=== PATIENT | male | born 1955 | race Caucasian/White ===

== ENCOUNTER 2024-01-21 05:30 | Day surgery (SDC) | payer MEDICARE, MEDICAID ==
[2024-01-14 11:31] LABS: BASOPHILS % (AUTO) 0.8 % (0-1); EOSINOPHILS # (AUTO) 0.2 X10'3 (0-0.9); EOSINOPHILS % (AUTO) 4.1 % (0-6); LYMPHOCYTES % (AUTO) 18.7 % (21-51); MEAN CORPUSCULAR HEMOGLOBIN 27.3 PG (27.0-31.0); MEAN CORPUSCULAR HGB CONC 32.3 g/dL (33.0-36.5); MEAN CORPUSCULAR VOLUME 84.3 FL (78-98); MEAN PLATELET VOLUME 7.2 FL (7.4-10.4); MONOCYTES # (AUTO) 0.4 X10'3 (0-0.9); MONOCYTES % (AUTO) 8.3 % (2-12); NEUTROPHILS # (AUTO) 3.6 X10'3 (1.8-7.7); NEUTROPHILS % (AUTO) 68.1 % (42-75); PRE OP HEMATOCRIT 43.7 % (42.0-52.0); PRE OP HEMOGLOBIN 14.1 g/dL (14.0-17.9); PRE OP PLATELET COUNT 292 X10'3 (140-440); PRE OP WHITE BLOOD COUNT 5.3 10'3 (4.8-10.8); RED BLOOD COUNT 5.18 X10'6 (4.70-6.10); RED CELL DISTRIBUTION WIDTH 16.7 % (11.5-14.5)
[2024-01-14 11:45] LABS: ALBUMIN 3.6 G/DL (3.4-5.0); ALKALINE PHOSPHATASE 86 IU/L (46-116); BLOOD UREA NITROGEN 22 MG/DL (7-18); BUN/CREATININE RATIO 17.2 (10.0-20.0); CALCIUM 8.7 MG/DL (8.5-10.1); CHLORIDE 104 MMOL/L (99-107); CREATININE 1.28 MG/DL (0.60-1.10); PRE OP ALT 31 U/L (30-65); PRE OP ANION GAP 8 (8-16); PRE OP AST 15 U/L (10-37); PRE OP BILIRUB, TOTAL 0.5 MG/DL (0.0-1.0); PRE OP GLUCOSE 79 MG/DL (70-104); PRE OP POTASSIUM 4.2 MMOL/L (3.4-5.1); PRE OP SODIUM 139 MMOL/L (135-145); TOTAL CARBON DIOXIDE 26.8 MMOL/L (24-32); TOTAL PROTEIN 7.2 G/DL (6.4-8.2); eGFR 56 ML/MIN
[~2024-01-21] VITALS: Ht 165.1 cm; Wt 88.0 kg
[2024-01-21] VITALS (21 sets, daily range): BP systolic 129–169; BP diastolic 63–105; PULSE 63–84; RESP 14–16; TEMP 97.7; O2SAT 93–99
[~2024-01-21 05:30] MED LIST: ADV50250; ALBU8HFA NEB; AMI200T PO; APIX5TAB3 PO; DOCUMENT DATE & TIME OF BETA-BLOCKER PO ONE; FLO0.4C PO; HYDR-3972 PO; LEVO50TA8 PO; METH-798 PO; METO-395 PO; [UNRECOGNIZED DRUG - CODE] PO; cefazolin 2gm/D5W 100mL 100 ML IV ONE
[2024-01-21] MEDS: ringers solution, lacted 1,000 ML IV SCH (06:01)
[2024-01-21] MEDS: famotidine 20mg tablet PO ONE (06:01)
[2024-01-21] MEDS ORDERED: midazolam 1 mg/ML 2ml injection ONE (07:11)
[2024-01-21] MEDS ORDERED: rocuronium 10mg/ml inj IV ONE (07:11)
[2024-01-21] MEDS ORDERED: propofol inj 20 ML IV ONE (07:11)
[2024-01-21] MEDS ORDERED: dexamethasone sod phosphate 4mg/ml inj. ONE (07:11)
[2024-01-21] MEDS ORDERED: fentaNYL/PF 50MCG/1 ML 2ML syringe ONE ×2 (07:11→08:14)
[2024-01-21] MEDS ORDERED: ondansetron/PF 4mg/2ml inj ONE (07:13)
[2024-01-21] MEDS: BUPIVAcaine 2.5mg/ml inj 50ml vial (contains preservative) ONE (07:19)
[2024-01-21] MEDS: LIDOcaine 1% 30ml preserv. free vial ONE (07:19)
[2024-01-21] MEDS ORDERED: labetalol 20mg/4ml (5mg/ml) syringe IV PRN (07:20)
[2024-01-21] MEDS ORDERED: ondansetron/PF 4mg/2ml inj IV PRN (07:20)
[2024-01-21] MEDS ORDERED: hydrALAZINE 20mg/ml inj. IV PRN (07:20)
[2024-01-21] MEDS ORDERED: fentaNYL/PF 50MCG/1 ML 2ML syringe IV PRN (07:20)
[2024-01-21] MEDS ORDERED: morphine 2 MG/ML inj. syringe IV PRN (07:20)
[2024-01-21] MEDS ORDERED: ringers solution, lacted 1,000 ML IV SCH (07:20)
[2024-01-21] MEDS ORDERED: sevoflurane 250ml liquid IH ONE (07:32)
[2024-01-21] MEDS ORDERED: acetaminophen 1,000mg/100ml IV 100 ML IV ONE (07:46)
[2024-01-21] MEDS ORDERED: ePHEDrine 50MG/ML INJ. ONE (07:51)
[2024-01-21] MEDS ORDERED: glycopyrrolate 0.2mg/ml inj ONE (08:57)
[2024-01-21] MEDS ORDERED: neostigmine methylsulfate 1 MG/ML 10ml vial ONE (08:57)
[2024-01-21] MEDS: morphine 4 MG/ML inj SYRINge IV PRN (10:00)
[2024-01-21] MEDS: HYDROcodone/acetaminophen 5mg/325mg tablet PO PRN (10:10)
[2024-01-21] MEDS: fentaNYL/PF 50MCG/1 ML 2ML syringe IV PRN (10:35)
== END 2024-01-21 12:00 | disposition home or self-care (01) ==
LOC: PAS 05:30
PROVIDERS: ATTEND Surgery
DX: K40.20 Bilateral inguinal hernia, without obstruction or gangrene, not specified as recurrent (principal); K42.9 Umbilical hernia without obstruction or gangrene; I10 Essential (primary) hypertension; E03.9 Hypothyroidism, unspecified; J45.909 Unspecified asthma, uncomplicated; I48.91 Unspecified atrial fibrillation; F32.A Depression, unspecified; M19.90 Unspecified osteoarthritis, unspecified site; Z86.711 Personal history of pulmonary embolism; Z79.01 Long term (current) use of anticoagulants; Z79.890 Hormone replacement therapy; Z79.891 Long term (current) use of opiate analgesic; Z79.899 Other long term (current) drug therapy; Z98.890 Other specified postprocedural states; Z88.8 Allergy status to other drugs, medicaments and biological substances
CPT/HCPCS: 36415; 80053; 82948; 85025; A4215; A4618; C1781; J0131; J0690; J1100; J2250; J2270; J2405; J2704; J2710; J3010; J3490; J7120